=== PATIENT | female | born 1960 | race Caucasian/White ===

== ENCOUNTER 2017-04-07 12:36 | Emergency (ER) | payer BC ==
[2017-04-07 13:00] VITALS: BP 144/72
--- NOTE | 2017-04-07 13:23 | UC ---
General HPI - HPI Summary HPI Summary: DIzziness for the past few days with standing and also changes in position like rolling over in bed. She also has right ear pressure and pain. There has been a recent URI with some cough and congestion. - History of Current Complaint Chief Complaint: UCEar Stated Complaint: RT EAR ACHE Time Seen by Provider: 04/07/17 12:54 Hx Obtained From: Patient Onset/Duration: Gradual Onset, Lasting Days Timing: Constant Onset Severity: Moderate Current Severity: Moderate Associated Signs & Symptoms: Positive: Dizziness. Negative: Chest Pain, Decreased Responsiveness, Nausea, Palpitations, Syncope, Weakness - Allergy/Home Medications Allergies/Adverse Reactions: Allergies Allergy/AdvReac Type Severity Reaction Status Date / Time Amoxicillin [From Augmentin] Allergy Hives Verified 04/07/17 13:00 Clavulanic Acid Allergy Hives Verified 04/07/17 13:00 [From Augmentin] Erythromycin Allergy Hives Verified 04/07/17 13:00 Home Medications: Home Medications Atorvastatin* [Lipitor*] 10 mg PO 1700 04/07/17 [History Confirmed 04/07/17] metFORMIN* [Glucophage 500 MG TAB *] 500 mg PO BID 04/07/17 [History Confirmed 04/07/17] PMH/Surg Hx/FS Hx/Imm Hx Previously Healthy: Yes Other History Of: Negative For: HIV, Hepatitis B, Hepatitis C, Anticoagulant Therapy - Surgical History Surgical History: Yes Surgery Procedure, Year, and Place: 1990--RIGHT FOOT TOES AMP R/T TRAUMA. R lower leg - Family History Known Family History: Positive: Cardiac Disease, Hypertension - Social History Alcohol Use: None Substance Use Type: Prescribed Smoking Status (MU): Heavy Every Day Tobacco Smoker Type: eCigarettes Amount Used/How Often: 10 CIGS PER DAY Length of Time of Smoking/Using Tobacco: 30 YRS - Immunization History Most Recent Influenza Vaccination: NOT CURRENT Review of Systems ENT: Ear Ache Neurological: Other - dizziness. All Other Systems Reviewed And Are Negative: Yes Physical Exam Triage Information Reviewed: Yes Appearance: Well-Appearing, No Pain Distress, Well-Nourished Vital Signs: Initial Vital Signs Temp 97.4 F 04/07/17 12:54 Pulse 85 04/07/17 12:54 Resp 16 04/07/17 12:54 BP 144/72 04/07/17 12:54 Pulse Ox 100 04/07/17 12:54 Vital Signs Reviewed: Yes ENT: Positive: Hearing grossly normal, TMs normal, Uvula midline. Negative: TM bulging, TM dull, TM red, Tonsillar swelling, Tonsillar exudate, Trismus, Sinus tenderness Dental: Negative: Cervical Lymphadenopathy, Bleeding Neck exam: Normal Neck: Positive: Supple, Nontender. Negative: Nuchal Rigidity Respiratory: Positive: Chest non-tender, Normal breath sounds, No respiratory distress, No accessory muscle use, Respiratory distress, Decreased breath sounds. Negative: Accessory muscle use, Crackles, Rhonchi, Stridor Cardiovascular: Positive: RRR, No Murmur, Pulses Normal, Brisk Capillary Refill Abdomen Description: Positive: Nontender, No Organomegaly. Negative: Distended , Guarding Musculoskeletal: Positive: Strength Intact, ROM Intact, No Edema Neurological: Positive: Alert, Muscle Tone Normal, Other: - Well coordinated Gait, no ataxia. No nystagmus. CN III-XII intact.. Negative: Fatigued, Lethargic Psychological: Positive: Age Appropriate Behavior Skin: Negative: rashes Course/Dx - Course Course Of Treatment: NO hx of CAD or CVA. There are no cerebellar findings. We discussed f/u with ENT for further testing. At times we described imaging is needed to rule out other etiologies but most of the time this is due to benign positional vertigo. - Differential Dx - Multi-Symptom Differential Diagnoses: Cardiac Ischemia, CVA, Metabolic Abnormality, Sepsis, Urinary Tract Infection Provider Diagnoses: dizziness. right ear pain. Discharge - Discharge Plan Condition: Good Disposition: HOME Patient Education Materials: Dizziness (ED) Referrals: LAURA Rodriguez [Primary Care Provider] - Jorge Franklin MD [Medical Doctor] - Additional Instructions: Follow up with our ENT doctor for vertigo. Try over the counter meclizine if needed.
== END 2017-04-07 13:20 | disposition home or self-care (01) ==
LOC: UCCORT 12:36
DX: R42 Dizziness and giddiness (principal); H92.01 Otalgia, right ear; Z88.1 Allergy status to other antibiotic agents; F17.210 Nicotine dependence, cigarettes, uncomplicated
CPT/HCPCS: 99211; G0463